=== PATIENT | male | born 1975 | race Caucasian/White ===

== ENCOUNTER 2018-03-31 19:09 | Emergency (ER) | payer SELFPAY ==
[2018-03-31] VITALS (7 sets, daily range): BP systolic 114–129; BP diastolic 63–84; PULSE 84–108; RESP 15–24; TEMP 37.1; O2SAT 87–98; BMI 27.9
--- NOTE | 2018-03-31 19:53 | RAD_ITS ---
STUDY: X-RAY CHEST REASON FOR EXAM: Male, 42 years old. Shortness of breath TECHNIQUE: PA and lateral views of the chest. COMPARISON: 02/28/2017 FINDINGS: The lungs are clear and expanded. There is no demonstrated pleural abnormality. Normal size heart. Normal mediastinum and matilda. Normal visualized pulmonary arteries. Normal visualized aortic arch and descending thoracic aorta. Normal visualized thoracic spine. Normal visualized ribs, clavicles, and shoulders. There is no demonstrated abnormality of the visualized soft tissue structures of the upper abdomen. RAD/Chest PA and Lateral IMPRESSION: Normal x-ray examination of the chest. Electronically Signed: Carlitos Parks DO at 20:14 EST Tel , Service support ,
[2018-03-31] MEDS: predniSONE 20 MG Tablet 60 MG PO (20:00)
[2018-03-31] MEDS: Ipratropium/Albuterol Sulfate 3 ML AMPUL.NEB INHALATION (20:13)
[2018-03-31] MEDS: Albuterol 2.5 MG/3 ML VIAL.NEB. INHALATION (21:36)
--- NOTE | 2018-03-31 22:02 | ED.DCSUM_ITS ---
- ER Visit Summary Date of Service: 03/31/18 Chief Complaint: Shortness of breath History of Present Illness: The patient is a 42 M who presents with shortness of breath that has been getting worse over the past 6-7 days. Patient states he feels himself wheezing. Patient states he ran out of his inhaler today. Patient admits to subjective chills but denies any fevers. Patient states he is having a cough with some yellow sputum. Patient denies any sore throat ear pain or rhinorrhea. Patient denies any chest pain. Patient states he has a history of asthma. Physical Examination: Vital signs are stable except for mild tachycardia of 108 and a mild tachypnea of 24. Pulse oximeter is 87% on room air. Oral mucosa is pink and moist. Neck is supple. Trachea is midline. There is no JVD noted. Heart was regular and slightly tachycardic. Lungs showed diffuse inspiratory a nd expiratory wheezing. There is good respiratory effort noted. There are no retractions noted. Abdomen is soft and nontender. Cranial nerves II through XII are intact. There are no focal motor or sensory deficits noted. The remaining physical exam is within normal limits. Test Results: PA and lateral chest x-rays obtained. There is no acute cardiopulmonary process. Emergency Department Course and Treatment: Patient was given a DuoNeb aerosol initially. Patient was given a dose of prednisone. Patient still has wheezing on reevaluation. Patient was given a repeat albuterol aerosol. Patient felt better after this. There is only slight wheezing on reevaluation. Patient's oxygen was turned off. Patient remained 95% on room air. Patient was given prescriptions for albuterol inhaler and prednisone. Patient was instructed to follow-up with his primary care physician in 7-10 days. Patient understood and was agreeable with the plan. All questions were answered. Disposition: Discharge home Impression: Asthma exacerbation This note was generated with [employer] dictation software. It may contain incorrect words, spelling, and punctuation that were not noted in review of the chart prior to signing ED Disposition - Plan for ED Patient: Disposition: Home or Assisted Living Diagnosis: Asthma exacerbation Instructions: ED Reactive Airway Disease Prescriptions: Albuterol Inhaler [Ventolin Hfa] 2 puff INHALATION Q4H PRN PRN #1 inhaler PRN Reason: Wheezing Prednisone [Deltasone] 60 mg PO DAILY #15 tab Referrals: Lindsey Yanez DO [Primary Care Provider] -
== END 2018-03-31 22:16 | disposition home or self-care (01) ==
PROVIDERS: Emergency Provider Emergency Medicine; Family Provider Internal Medicine; PCP Internal Medicine
DX: J45.901 Unspecified asthma with (acute) exacerbation (principal); F17.220 Nicotine dependence, chewing tobacco, uncomplicated
CPT/HCPCS: 71046; 94640; 99284